=== PATIENT | male | born 1965 | race Caucasian/White ===

== ENCOUNTER 2019-10-03 05:14 | Day surgery (SDC) | payer OTHER ==
[2019-09-29 10:19] LABS: BASOPHILS # (AUTO) 0.1 X10'3 (0-0.2); BASOPHILS % (AUTO) 0.9 % (0-1); EOSINOPHILS # (AUTO) 0.1 X10'3 (0-0.9); EOSINOPHILS % (AUTO) 1.7 % (0-6); LYMPHOCYTES # (AUTO) 1.6 X10'3 (1.1-4.8); LYMPHOCYTES % (AUTO) 22.8 % (21-51); MEAN CORPUSCULAR HEMOGLOBIN 29.9 PG (27.0-31.0); MEAN CORPUSCULAR VOLUME 87.9 FL (78-98); MEAN PLATELET VOLUME 8.8 FL (7.4-10.4); MONOCYTES # (AUTO) 0.5 X10'3 (0-0.9); MONOCYTES % (AUTO) 7.8 % (2-12); NEUTROPHILS # (AUTO) 4.6 X10'3 (1.8-7.7); NEUTROPHILS % (AUTO) 66.8 % (42-75); PRE OP HEMATOCRIT 44.8 % (42.0-52.0); PRE OP HEMOGLOBIN 15.2 g/dL (14.0-17.9); PRE OP PLATELET COUNT 178 X10'3 (140-440); RED BLOOD COUNT 5.09 X10'6 (4.70-6.10); RED CELL DISTRIBUTION WIDTH 13.4 % (11.5-14.5)
[2019-09-29 10:32] LABS: PRE OP INR 1.3 INR; PRE OP PROTIME 13.2 SECONDS (9.0-12.0)
[2019-09-29 10:48] LABS: ALBUMIN 3.8 G/DL (3.4-5.0); ALBUMIN/GLOBULIN RATIO 1.2 (1.1-1.5); ALKALINE PHOSPHATASE 103 IU/L (46-116); BLOOD UREA NITROGEN 13 MG/DL (7-18); BUN/CREATININE RATIO 14.1 (5.4-32.0); CALCIUM 9.4 MG/DL (8.5-10.1); CHLORIDE 108 MMOL/L (99-107); CREATININE 0.92 MG/DL (0.60-1.10); PRE OP ALT 28 U/L (30-65); PRE OP ANION GAP 9 (8-16); PRE OP AST 18 U/L (10-37); PRE OP BILIRUB, TOTAL 0.9 MG/DL (0.0-1.0); PRE OP GLUCOSE 105 MG/DL (70-104); PRE OP SODIUM 143 MMOL/L (135-145); TOTAL CARBON DIOXIDE 26.1 MMOL/L (24-32); TOTAL PROTEIN 7.1 G/DL (6.4-8.2); eGFR 86 ML/MIN
[~2019-10-03] VITALS: Ht 198.1 cm; Wt 142.9 kg
[2019-10-03] VITALS (16 sets, daily range): BP systolic 127–147; BP diastolic 60–85
[~2019-10-03 05:14] MED LIST: APIX5TAB3 PO; FLEC100T2 PO; MULT-1085 PO; NADO20TA PO; OMEP20TA5 PO; SPIR25TA5 PO; ringers solution, lacted 1,000 ML IV SCH
[2019-10-03] MEDS ORDERED: DOCUMENT DATE & TIME OF BETA-BLOCKER PO ONE (05:30)
[2019-10-03] MEDS ORDERED: ceFAZolin/D5W- 1GM premix 50 ML IV ONE (05:30)
[2019-10-03] MEDS ORDERED: famotidine 20mg tablet PO ONE (05:30)
[2019-10-03] MEDS ORDERED: cefazolin/dext.iso 2gm/100ml 100 ML IV ONE (05:30)
[2019-10-03] MEDS ORDERED: LIDOcaine 1% (10mg/ml) 2ml vial ONE (05:42)
[2019-10-03] MEDS ORDERED: LIDOcaine 1% 30ml preserv. free vial ONE (06:40)
[2019-10-03] MEDS ORDERED: BUPIVAcaine/PF 2.5 mg/ml (0.25%) 30ml vial ONE (06:40)
[2019-10-03] MEDS ORDERED: fentaNYL/PF 50MCG/1 ML 2ML syringe ONE (07:14)
[2019-10-03] MEDS ORDERED: midazolam 2 mg/2 ml injection ONE (07:14)
[2019-10-03] MEDS ORDERED: BUPIVAcaine/PF 2.5 mg/ml (0.25%) 30ml vial IJ ONE (07:59)
[2019-10-03] MEDS ORDERED: LIDOcaine 1% 30ml preserv. free vial IJ ONE (08:00)
[2019-10-03] MEDS ORDERED: ringers solution, lacted 1,000 ML IV SCH (08:23)
[2019-10-03] MEDS ORDERED: HYDROmorphone inj. 0.5 MG/0.5 ML DISP.SYRIN IV PRN ×2 (08:25)
[2019-10-03] MEDS ORDERED: meperidine/PF 25mg/ml syringe IV PRN ×2 (08:25)
[2019-10-03] MEDS ORDERED: ondansetron/PF 4mg/2ml inj IV PRN (08:25)
[2019-10-03] MEDS ORDERED: neostigmine methylsulfate 1 MG/ML 10ml vial ONE (08:31)
[2019-10-03] MEDS ORDERED: LIDOcaine 2% (20mg/ml) 5ml vial ONE (08:31)
[2019-10-03] MEDS ORDERED: ondansetron/PF 4mg/2ml inj ONE (08:31)
[2019-10-03] MEDS ORDERED: glycopyrrolate 0.2mg/ml inj ONE (08:31)
[2019-10-03] MEDS ORDERED: propofol inj 20 ML IV ONE (08:31)
[2019-10-03] MEDS ORDERED: dexamethasone sod phosphate 4mg/ml inj. ONE (08:31)
[2019-10-03] MEDS ORDERED: rocuronium 10mg/ml inj IV ONE (08:31)
--- NOTE | 2019-10-03 09:13 | NUR ---
RECIEVED FROM OR VIA GURNEY ACCOMPANIED BY ANESTHESIA DR CASTREJON, REPORT GIVEN. PT DROWSY BUT AWAKENS WITH NO COMPLAINT OF PAIN AT THIS TIME. 20 GAUGE PIV L AC PATENT AND RUNNING LR AT 100 ML/HR. LG BANDAID DRESSINGS X3 CDI, ABD SOFT, SKIN PINK AND WARM, VITALS STABLE.
[2019-10-03] MEDS ORDERED: albuterol 2.5 MG/3 ML nebule NEB ONE (09:20)
[2019-10-03] MEDS ORDERED: albuterol 2.5 MG/3 ML nebule ONE (09:25)
[2019-10-03] MEDS ORDERED: oxyCODONE/APAP 5-325mg tablet PO PRN (09:25)
[2019-10-03] MEDS ORDERED: oxyCODONE/APAP 10/325mg tablet PO PRN (09:25)
--- NOTE | 2019-10-03 11:43 | NUR ---
DISCHARGE CRITERIA MET, VSS, UNABLE TO URINATE, BUT WHEN OFFERED TO GO HOME BY DR ALVAREZ, PT OPTED THAT CHOICE. COMPLAINT OF PAIN AT A LEVEL 2 ATTHIS TIME. 20 GAUGE PIV L AC DC/D CATHETER TIP INTACT. LG BANDAID DRESSINGS X3 CDI, ABD SOFT, SKIN PINK AND WARM, DISCHARGE INSTRUCTIONS GIVEN, VERBALIZED UNDERSTANDING.TRANSPORTED VIA WHEELCHAIR TO IN PRIVATE VEHICLE TO HOME.
== END 2019-10-03 11:43 | disposition home or self-care (01) ==
LOC: PAS 05:14
PROVIDERS: ATTEND Surgery
DX: K40.90 Unilateral inguinal hernia, without obstruction or gangrene, not specified as recurrent (principal); E66.9 Obesity, unspecified; I48.91 Unspecified atrial fibrillation; K21.9 Gastro-esophageal reflux disease without esophagitis; Z98.890 Other specified postprocedural states; Z91.040 Latex allergy status; Z91.048 Other nonmedicinal substance allergy status; Z88.6 Allergy status to analgesic agent; Z96.653 Presence of artificial knee joint, bilateral
CPT/HCPCS: 36415; 49650; 71046; 80053; 82948; 85025; 85610; 85730; 93005; 94640; 94760; C1781; J0690; J1100; J2001; J2175; J2250; J2405; J2704; J2710; J3010; J3490; J7120; S2900; A4215; A4618

== ENCOUNTER 2020-12-30 02:03 | Emergency (ER) | payer BC, OTHER ==
[~2020-12-30] VITALS: Ht 198.1 cm; Wt 145.0 kg
[~2020-12-30 02:03] MED LIST changes: -NADO20TA PO; +NADO20TA5 PO; -ringers solution, lacted 1,000 ML IV SCH
[2020-12-30] MEDS ORDERED: fentaNYL/PF 50MCG/1 ML 2ML syringe IV ONE (02:20)
[2020-12-30] MEDS ORDERED: ketorolac trometh. 30mg/ml inj. IV ONE (02:20)
[2020-12-30 03:13] LABS: BASOPHILS % (AUTO) 0.4 % (0-1); EOSINOPHILS # (AUTO) 0.1 X10'3 (0-0.9); EOSINOPHILS % (AUTO) 1.7 % (0-6); HEMATOCRIT 45.3 % (42.0-52.0); HEMOGLOBIN 15.5 g/dl (14.0-17.9); LYMPHOCYTES # (AUTO) 1.5 X10'3 (1.1-4.8); LYMPHOCYTES % (AUTO) 19.7 % (21-51); MEAN CORPUSCULAR HEMOGLOBIN 30.4 PG (27.0-31.0); MEAN CORPUSCULAR HGB CONC 34.3 g/dL (33.0-36.5); MEAN CORPUSCULAR VOLUME 88.6 FL (78-98); MEAN PLATELET VOLUME 8.5 FL (7.4-10.4); MONOCYTES # (AUTO) 0.7 X10'3 (0-0.9); MONOCYTES % (AUTO) 9.8 % (2-12); NEUTROPHILS # (AUTO) 5.2 X10'3 (1.8-7.7); NEUTROPHILS % (AUTO) 68.4 % (42-75); PLATELET COUNT 173 X10'3 (140-440); RED BLOOD COUNT 5.12 X10'6 (4.70-6.10); RED CELL DISTRIBUTION WIDTH 13.4 % (11.5-14.5); WHITE BLOOD COUNT 7.5 X10'3 (4.5-11.0)
[2020-12-30 03:20] LABS: ALANINE AMINOTRANSFERASE 33 U/L (12-78); ALBUMIN 4.1 G/DL (3.4-5.0); ALBUMIN/GLOBULIN RATIO 1.3 (1.1-1.5); ALKALINE PHOSPHATASE 82 IU/L (46-116); ANION GAP 5 (8-16); ASPARTATE AMINO TRANSFERASE 17 U/L (10-37); BILIRUBIN,TOTAL 0.8 MG/DL (0.1-1.0); BLOOD UREA NITROGEN 17 MG/DL (7-18); BUN/CREATININE RATIO 15.5 (5.4-32.0); CALCIUM 9.2 MG/DL (8.5-10.1); CHLORIDE 108 MMOL/L (99-107); GLUCOSE 103 MG/DL (70-104); LIPASE 119 U/L (73-393); POTASSIUM 4.2 MMOL/L (3.5-5.1); SODIUM 142 MMOL/L (135-145); TOTAL CARBON DIOXIDE 29.1 MMOL/L (24-32); TOTAL PROTEIN 7.3 G/DL (6.4-8.2); eGFR 70 ML/MIN
[2020-12-30 03:28] LABS: COLOR,URINE YELLOW (Yellow); GLUCOSE, URINE NEGATIVE (Neg); KETONES,URINE NEGATIVE (Neg); LEUKOCYTE ESTERASE ,URINE NEGATIVE (Neg); NITRITES, URINE NEGATIVE (Neg); OCCULT BLOOD,URINE LARGE (Neg); PROTEIN,URINE NEGATIVE (Neg)
[2020-12-30 03:35] LABS: CLARITY,URINE SLIGHTLY CLOUDY (Clear); UA COLLECTION TYPE CLN CATCH MIDSTREAM
[2020-12-30 03:36] LABS: BACTERIA,URINE NONE SEEN /HPF (Neg); CAL OXALATE CRYSTALS 1+ /HPF (NEGATIVE); SQUAMOUS EPITHELIAL CELL,UR NONE SEEN /LPF (FEW); WBC,URINE NONE SEEN /HPF (0-4)
[2020-12-30 03:37] LABS: MUCUS STRANDS MODERATE /LPF (Neg)
[2020-12-30] MEDS ORDERED: TRAM50TA2 PO (04:20)
[2020-12-30 04:36] VITALS: BP 120/74
== END 2020-12-30 04:37 | disposition home or self-care (01) ==
LOC: ER 02:03
DX: N20.0 Calculus of kidney (principal); N23 Unspecified renal colic; I48.91 Unspecified atrial fibrillation; I10 Essential (primary) hypertension; Z90.89 Acquired absence of other organs; Z98.890 Other specified postprocedural states; Z88.6 Allergy status to analgesic agent; Z88.5 Allergy status to narcotic agent; Z88.8 Allergy status to other drugs, medicaments and biological substances; Z91.040 Latex allergy status; Z79.899 Other long term (current) drug therapy
CPT/HCPCS: 36415; 74176; 80053; 81001; 83690; 85025; 96374; 96375; 99284; J1885; J3010